=== PATIENT | male | born 1990 | race Caucasian/White ===

== ENCOUNTER → 2017-12-16 | Outpatient (REF) | payer OTHER | LOC: M LAB REF 19:27 | DX: J02.9 Acute pharyngitis, unspecified (principal) ==

== ENCOUNTER 2018-04-09 20:32 | Emergency (ER) | payer BC, OTHER ==
[~2018-04-09] VITALS: Ht 190.5 cm; Wt 104.5 kg
[2018-04-09] MEDS ORDERED: OMEP40CA2 PO (21:45)
[2018-04-09 22:19] LABS: BASO % 0.3 % (0.0-1.0); EOS % 0.2 % (0.0-3.0); HEMATOCRIT 43.8 % (42.0-52.0); HEMOGLOBIN 15.4 g/dl (13.5-17.5); LYMPH # 1.8 10^3/uL (1.5-6.5); LYMPH % 12.1 % (24.0-44.0); MEAN CORPUSCULAR HEMOGLOBIN 29.7 pg (27.0-33.0); MEAN CORPUSCULAR HGB CONC 35.2 g/dl (32.0-36.5); MEAN CORPUSCULAR VOLUME 84.4 fl (80.0-96.0); MONO # 0.7 10^3/uL (0.0-0.8); MONO % 4.8 % (0.0-5.0); NEUTROPHILS # 11.9 10^3/uL (1.8-7.7); PLATELET COUNT, AUTOMATED 271 10^3/uL (150-450); RED BLOOD COUNT 5.19 10^6/uL (4.30-6.10); WHITE BLOOD COUNT 14.5 10^3/uL (4.0-10.0)
[2018-04-09 22:31] LABS: INR 1.02; PROTHROMBIN TIME 13.5 SECONDS (12.1-14.4)
[2018-04-09 22:49] LABS: ALT/SGPT 33 U/L (12-78); BILIRUBIN,TOTAL 0.3 MG/DL (0.2-1.0); BLOOD UREA NITROGEN 14 MG/DL (7-18); CALCIUM LEVEL 8.7 MG/DL (8.5-10.1); CARBON DIOXIDE LEVEL 28 MEQ/L (21-32); CHLORIDE LEVEL 104 MEQ/L (98-107); CK-MB VALUE MASS < 1.0 NG/ML (<3.6); CPK CREATINE PHOSPHOKINASE 92 U/L (39-308); CREATININE FOR GFR 1.03 MG/DL (0.70-1.30); GLOMERULAR FILTRATION RATE > 60.0 (>60); GLUCOSE, FASTING 116 MG/DL (70-100); LIPASE 141 U/L (73-393); MAGNESIUM LEVEL 1.9 MG/DL (1.8-2.4); MB/CK RELATIVE INDEX 1.09 (< OR =4); POTASSIUM SERUM 3.9 MEQ/L (3.5-5.1); SODIUM LEVEL 139 MEQ/L (136-145); TOTAL PROTEIN 7.9 GM/DL (6.4-8.2); TROPONIN I < 0.02 NG/ML (< 0.10)
[2018-04-09 23:00] VITALS: BP 122/82
[2018-04-09] MEDS ORDERED: NS 1,000 ML IV ONE (23:00)
[2018-04-09] MEDS ORDERED: LORazepam 2 MG/ML VIAL (J2060) IV STA (23:28)
--- NOTE | 2018-04-10 01:30 | REP ---
Clinical: Acute chest pain . Comparison: 06/02/2007 . Technique: PA and lateral. Findings: The mediastinum and cardiac silhouette are normal. The lung lewis are clear and without acute consolidation, effusion, or pneumothorax. The skeletal structures are intact and normal. Impression: 1. No acute cardiopulmonary process. Electronically Signed by Danyel Bowman MD 04/10/2018 01:22 A
--- NOTE | 2018-04-10 06:33 | ECGEPIP ---
Stationary ECG Study [facility] - ED Test Date: 2018-04-09 Pat Name: MACARENA HANDLEY Department: Room: - Gender: M [employer] Operator: BRUNO : 1990 Requested By: ARSENIO Dos Santos PA-C Order Number: [id number] Reading MD: Angel Quick Measurements Intervals [place] Rate: 96 P: 61 ND: 112 QRS: 60 QRSD: 94 T: 47 QT: 338 QTc: 429 Interpretive Statements SINUS RHYTHM WITH SHORT ND INTERVAL NONSPECIFIC T-WAVE ABNORMALITY NO OLD ECG FOR COMPARISON Electronically Signed On 04-10-2018 6:32:57 EST by Anegl Quick
== END 2018-04-10 00:12 | disposition home or self-care (01) ==
LOC: M ED 20:32
DX: F41.9 Anxiety disorder, unspecified (principal); R00.2 Palpitations; K21.9 Gastro-esophageal reflux disease without esophagitis
CPT/HCPCS: 36415; 71046; 80053; 82550; 82553; 83690; 83735; 84443; 84484; 85025; 85610; 93005; 93041; 96374; 99284; J2060

== ENCOUNTER → 2018-07-18 | Outpatient (REF) | payer OTHER ==
[~2018-07-18] MED LIST: OMEP40CA2 PO
[2018-07-18 13:42] LABS: SEMEN APPEARANCE OPAQUE (OPAQUE); SEMEN VISCOSITY LIQUID (LIQUID); SEMEN VOLUME 5.3 ml (2.0-5.0)
[2018-07-18 13:43] LABS: SPERM CONCENTRATION 25.7 M/ml (>=15.0); WBC CONCENTRATION >1 M/ml (<=1 M/ml)
== END ==
LOC: M LAB REF 13:25
PROVIDERS: ATTEND Obstetrics & Gynecology Reproductive Endocrinology
DX: Z31.41 Encounter for fertility testing (principal)

== ENCOUNTER → 2019-01-23 | Outpatient (CLI) | payer BC, OTHER ==
[~2019-01-23] MED LIST changes: -OMEP40CA2 PO; +OMEP40CA97 PO
--- NOTE | 2019-01-23 15:09 | REP ---
Four views bilateral clavicles and three views left shoulder: 01/23/2019. Indication: Left shoulder and clavicular pain. Comparison: 04/09/2018. Findings: There is no acute fracture, subluxation or dislocation. No lytic or blastic lesions are present. The visualized lungs are clear. Impression: No acute osseous clavicular or left shoulder injury. Electronically Signed by Perez Candelaria DO 01/23/2019 03:01 P
== END ==
LOC: M ADAMS 14:34
PROVIDERS: ATTEND Physician Assistant
DX: M25.512 Pain in left shoulder (principal)

== ENCOUNTER → 2019-01-25 | Outpatient (REF) | payer BC | LOC: M LAB REF 16:15 | PROVIDERS: ATTEND Physician Assistant | DX: J00 Acute nasopharyngitis [common cold] (principal) ==

== ENCOUNTER → 2019-02-16 | Outpatient (CLI) | payer BC ==
--- NOTE | 2019-02-16 19:09 | REP ---
Cervical spine series: Three views. History: Neck pain. Findings: Cervical vertebral body heights are preserved and alignment is normal on lateral view. Disc spaces are maintained. Prevertebral soft tissues are not widened. Open-mouth odontoid view is unremarkable. AP radiograph shows no abnormality. Impression: Negative three-view cervical spine series. Electronically Signed by Chun Taylor MD 02/17/2019 05:37 A
== END ==
LOC: M ADAMS 15:00
PROVIDERS: ATTEND Physician Assistant
DX: M54.2 Cervicalgia (principal)

== ENCOUNTER → 2019-04-02 | Outpatient (CLI) | payer BC, OTHER ==
[~2019-04-02] MED LIST changes: +CONRAY-43 43% 50ML VIAL (Q9960) As Ordered ONE; +PROHANCE 279.3MG/ML 5ML VIAL (A9576) As Ordered ONE
== END ==
LOC: M RADPRO 06:36
PROVIDERS: ATTEND Physician Assistant
DX: M75.42 Impingement syndrome of left shoulder (principal); Z53.8 Procedure and treatment not carried out for other reasons

== ENCOUNTER → 2020-08-05 | Outpatient (CLI) | payer BC, OTHER ==
[~2020-08-05] MED LIST changes: -CONRAY-43 43% 50ML VIAL (Q9960) As Ordered ONE; +OMEP40CA4 PO; -OMEP40CA97 PO; -PROHANCE 279.3MG/ML 5ML VIAL (A9576) As Ordered ONE
[2020-08-05 18:25] LABS: ALT/SGPT 29 U/L (12-78); BILIRUBIN,TOTAL 0.5 MG/DL (0.2-1.0); BLOOD UREA NITROGEN 16 MG/DL (7-18); CALCIUM LEVEL 9.2 MG/DL (8.5-10.1); CARBON DIOXIDE LEVEL 27 MEQ/L (21-32); CHLORIDE LEVEL 103 MEQ/L (98-107); CHOLESTEROL LEVEL 176 MG/DL (<200); CHOLESTEROL RISK RATIO 4.512 (<5); CREATININE FOR GFR 1.06 MG/DL (0.70-1.30); GLOMERULAR FILTRATION RATE > 60.0 (>60); GLUCOSE, FASTING 68 MG/DL (70-100); HDL CHOLESTEROL 39 MG/DL (>40); LDL CHOLESTEROL 120 MG/DL (<100); NON-HDL-C 137 MG/DL; SODIUM LEVEL 140 MEQ/L (136-145); TOTAL PROTEIN 7.8 GM/DL (6.4-8.2); TRIGLYCERIDES LEVEL 87 MG/DL (<150)
== END ==
LOC: M LAB 16:50
PROVIDERS: ATTEND Nurse Practitioner Family
DX: R03.0 Elevated blood-pressure reading, without diagnosis of hypertension (principal)

== ENCOUNTER → 2021-11-30 | Outpatient (REF) | payer BC, OTHER | LOC: M LAB REF 17:14 | PROVIDERS: ATTEND Nurse Practitioner Family | DX: K12.0 Recurrent oral aphthae (principal) ==